=== PATIENT | male | born 1935 | race Caucasian/White ===

== ENCOUNTER 2019-05-12 14:04 | Emergency (ER) | payer OTHER, MEDICAID ==
[~2019-05-12] VITALS: Ht 162.6 cm; Wt 68.0 kg
[2019-05-12 14:04] VITALS: BP 189/126
--- NOTE | 2019-05-12 14:04 | NUR ---
1401---Patient BIBRicki ALS accompanied by Shante PARSON with CPR in progress, transferred to bed 10. CPR continued by [facility] staff. Dr. Meeks, RN, and RT evaluating the patient at bedside.
--- NOTE | 2019-05-12 14:10 | NUR ---
BIBA C/O FULL ARREST DUE TO SEIZURE AT HOME. WITNESSED BY FAMILY MEMBERS, PT HAD SEIZURE 45 minutes prior to EMS arrival on scene. PT WAS LAID ON THE FLOOR AND HAD CARDIAC ARREST, AND THEN FAMILY CALLED 911. EMS GAVE PT epinephrine x6, with 2 rounds of lidocaine, AND shocked the patient a total of 8 times before arrival. Patient arrived to the ED in FULL cardiac arrest, intubated by EMS, and with EMS performing chest compressions. RTS, YARN SIZER, RNS, AND ERMD ARE PREPARED UPON PT'S ARRIVAL. IO PLACED ON PT'S ANTERIOR RIGHT LOWER TIBIA BY EMS.
--- NOTE | 2019-05-12 14:10 | NUR ---
Note undalfonso in EDM - 05/12/19 at 1833 by TISHA BIBA C/O FULL ARREST DUE TO SEIZURE AT HOME. WITNESSED BY FAMILY MEMBERS, PT HAD SEIZURE 45 minutes prior to EMS arrival on scene. PT WAS LAID ON THE FLOOR AND HAD CARDIAC ARREST. FAMILY CALLED 911. EMS GAVE PT epinephrine x6, with 2 rounds of lidocaine. EMS shocked the patient a total of 8 times before arrival. Patient arrived to the ED in cardiac arrest, intubated by EMS, and with EMS performing chest compressions. RTS, ROOM SERVICE MANAGER, RNS, AND ERMD ARE PREPARED UPON PT'S ARRIVAL.
--- NOTE | 2019-05-12 14:17 | NUR ---
DR VILLEGAS SPEAKING WITH PT'S FAMILY
[2019-05-12] MEDS ORDERED: CODE BLUE PARTICIPANT 1 EA MISC MC ONE (14:35)
[2019-05-12] MEDS ORDERED: EPINEPHrine PFS 0.1 MG/ML SYR IVP ONE (14:35)
[2019-05-12] MEDS ORDERED: SODIUM BICARBONATE 8.4% PFS 50 MEQ/50 ML SYR IVP ONE (14:35)
[2019-05-12] MEDS ORDERED: AMIODARONE 150 MG/3 ML VIAL IV ONE (14:35)
[2019-05-12] MEDS ORDERED: CALCIUM CHLORIDE 10% 100 MG/ML SYR IVP ONE (14:35)
[2019-05-12] MEDS ORDERED: SUCCINYLCHOLINE CHLORIDE 200 MG/10 ML VIAL IVP ONE (14:35)
[2019-05-12] MEDS ORDERED: ETOMIDATE 20 MG/10 ML VIAL IVP ONE (14:35)
--- NOTE | 2019-05-12 14:35 | NUR ---
PT'S FAMILY AT BEDSIDE WITH STAFF. TIME OF CALLED AT 1435.
--- NOTE | 2019-05-12 14:45 | NUR ---
CALLED [facility] SPOKE WITH ALEXIS CASTANEDA NO.[phone]
--- NOTE | 2019-05-12 14:55 | NUR ---
CALLED INSPECTOR BICYCLE, SPOKE WITH YUSUF STATED WILL CALL BACK.
--- NOTE | 2019-05-12 15:05 | NUR ---
[facility] CALLED BACK, SPOKE WITH ILIANA CASE NO.[id number]
--- NOTE | 2019-05-12 16:10 | NUR ---
CALLED PROFESSOR OF COMMUNICATION ARTS TO FOLLOW UP, SPOKE WITH JORDY, STATED PROFESSOR OF COMMUNICATION ARTS DEPUTY WOULD CALL BACK SOON
--- NOTE | 2019-05-12 17:30 | NUR ---
CALLED STUDENT ADVISOR, FLOYD IS BUSY AT THIS TIME
--- NOTE | 2019-05-12 18:00 | NUR ---
CALLED OUTPATIENT FACILITY PHYSICAL THERAPIST, THE LINE IS BUSY AT THIS TIME
--- NOTE | 2019-05-12 18:14 | NUR ---
CALLED ELECTRIC CRANE OPERATOR TO F/U SPOKE WITH JNA, STATED NO ELECTRIC CRANE OPERATOR DEPUTY AT THIS TIME, WILL CALL BACK SOON PISSIBLE
--- NOTE | 2019-05-12 19:10 | NUR ---
CALLED QUITLINE COUNSELOR TO F/U, SPOKE WITH BAYRON, STATED WILL SEND MESSAGE TO THE QUITLINE COUNSELOR DEPUTY TO CALL BACK.
--- NOTE | 2019-05-12 20:15 | NUR ---
CALLED WATER SUPERINTENDENT, SPOKE TO KAYLEN. SHE STATED SHE WILL SEND A MESSEGE TO WATER SUPERINTENDENT. GLORIA AND FUNMI ARMSTRONG MADE AWARE.
--- NOTE | 2019-05-12 20:27 | NUR ---
[facility] CALLED SPOKE TO GREG. KM STATED THAT [facility] WILL NOT PROCEED WITH THE PT. GLORIA MADE AWARE. Addendum: 05/12/19 at 2035 by [email or web address] [facility] CALLED SPOKE TO GREG. SHE STATED THAT [facility] WILL NOT PROCEED WITH THE PT. GLORIA MADE AWARE.
--- NOTE | 2019-05-12 22:08 | NUR ---
SPOKE TO INFORMATION CLERK CASHIER DEPJaycee HERNANDEZ, PT IS NOT A CORONERS CASE AND CAN BE RELEASED TO [facility]. WILL CONTACT GLORIA ANTON MADE AWARE OF STATUS. Addendum: 05/12/19 at 2220 by FRANKY SPOKE TO INFORMATION CLERK CASHIER DEPJaycee HERNANDEZ, PT IS NOT A CORONERS CASE AND CAN BE RELEASED TO [facility]. WILL CONTACT GLORIA ANTON MADE AWARE OF STATUS. #[id number]
--- NOTE | 2019-05-12 22:45 | NUR ---
SPOKE WITH PT'S DAUGHTER PRESLEY RENE, NOTIFIED THAT DIRECTOR GEOTHERMAL OPERATIONS RELEASED PT'S BODY. PER PT'S DAUGHTER, PT CAN GO TO [facility]. RECEIVED TELEPHONE CONSENT WITH 2 RN VERIFICATION, WITH EMMETT BRIGGS. PT'S NEXT OF KIN PRESLEY RENE VERBALIZED UNDERSTANDING.
--- NOTE | 2019-05-12 23:07 | NUR ---
SPOKE WITH DANIELLE WITH [facility] [employer] [employer], TRANSPORT ETA 1.5-2HRS. PT TO BE SENT TO MED-SURG/TELE 113 AT THIS TIME AWAITING FOR TRANSPORT.
--- NOTE | 2019-05-12 23:49 | NUR ---
BODY MOVED TO ROOM 113
== END 2019-05-12 14:35 | disposition expired ==
LOC: MED 14:04
DX: I46.9 Cardiac arrest, cause unspecified (principal)
CPT/HCPCS: 92950; 99291; J0171; J0282; 31500; J0330; J3490